=== PATIENT | male | born 1975 | race Hispanic/Latino ===

== ENCOUNTER 2021-08-01 11:54 | Emergency (ER) | payer OTHER ==
[2021-08-01] VITALS (7 sets, daily range): BP systolic 110–135; BP diastolic 69–82
[~2021-08-01] VITALS: Ht 167.6 cm; Wt 93.0 kg
[~2021-08-01 11:54] MED LIST: CAPTOPRIL25 MG PO; HYDROCHLOROT12.5 MG PO
[2021-08-01] MEDS ORDERED: VISTARIL25 MG PO (12:47)
[2021-08-01] MEDS ORDERED: NAPROXEN375 MG PO (12:47)
== END 2021-08-01 13:59 | disposition home or self-care (01) | DRG 125 ==
LOC: ED 11:54
DX: S05.01XA Injury of conjunctiva and corneal abrasion without foreign body, right eye, initial encounter (principal); I10 Essential (primary) hypertension; W22.8XXA Striking against or struck by other objects, initial encounter; Y93.H9 Activity, other involving exterior property and land maintenance, building and construction; Y92.89 Other specified places as the place of occurrence of the external cause; Y99.0 Civilian activity done for income or pay